=== PATIENT | female | born 1995 | race Caucasian/White ===

== ENCOUNTER 2017-11-14 10:14 | Observation (INO) | payer OTHER ==
[2017-11-14] VITALS (9 sets, daily range): BP systolic 103–120; BP diastolic 56–71; PULSE 70–102; TEMP 97.5–97.9
[~2017-11-14] VITALS: Ht 154.9 cm; Wt 57.7 kg
[2017-11-14 10:41] LABS: COLLECTION METHOD CLEAN CATCH
[2017-11-14 10:45] LABS: BASO # 0.1 (0.0-0.2); BASO % 0.7 % (0.0-2.0); EOS # 0.1 (0.0-0.7); EOS % 1.2 % (0-4.0); GRAN # 4.6 (1.4-6.5); GRAN % 68.6 % (42.2-75.2); HEMATOCRIT 37.7 % (37.0-47.0); HEMOGLOBIN 12.9 g/dl (12.5-16.0); LYMPH # 1.5 (1.2-3.4); LYMPH % 21.7 % (20.0-51.0); MEAN CELL VOLUME 84 fl (80.0-100.0); MEAN CORPUSCULAR HEMOGLOBIN 29 pg (27.0-31.0); MEAN CORPUSCULAR HGB CONC 34 g/dl (33.0-37.0); MEAN PLATELET VOLUME 9.4 fl (7.4-10.4); MONO # 0.5 (0.1-0.6); MONO % 7.7 % (1.7-9.3); PLATELET COUNT 299 K/mm3 (130-400)
[2017-11-14 10:55] LABS: ALBUMIN 4.1 gm/dL (3.5-5.0); BILIRUBIN,TOTAL 0.4 mg/dL (0.0-1.0); CALCIUM 9.1 mg/dL (8.4-10.2); CREATININE, serum 0.7 mg/dL (0.52-1.25); POTASSIUM 3.9 mmol/L (3.4-5.0); TOTAL PROTEIN 7.4 gm/dL (6.4-8.2)
[2017-11-14 10:55] LABS: MUCOUS Present /lpf; PH 7 (5-8); URINE APPEARANCE Hazy; URINE BACTERIA Rare /hpf; URINE BILIRUBIN Negative (NEGATIVE); URINE BLOOD 1+ (NEGATIVE); URINE COLOR Yellow; URINE GLUCOSE Negative (NEGATIVE); URINE KETONE Negative (NEGATIVE); URINE LEUKOCYTE ESTERASE Trace (NEGATIVE); URINE NITRATE Negative (NEGATIVE); URINE PROTEIN(semi-quant) 1+ (NEGATIVE); URINE UROBILINOGEN Negative (NEGATIVE)
[2017-11-14] MEDS ORDERED: FLAGYL500 MG PO ×2 (12:22→14:52)
[2017-11-14] MEDS ORDERED: IBU800 M1 PO (14:52)
[2017-11-14] MEDS ORDERED: PERCOCET 325 MG1 TA2 PO (14:52)
== END 2017-11-14 19:15 | disposition home or self-care (01) ==
LOC: COL.ER 10:14 → OB 13:18 → COL.ER 13:31 → OB 19:15
PROVIDERS: Physician Assistant
DX: N83.512 Torsion of left ovary and ovarian pedicle (principal); N83.6 Hematosalpinx; J45.909 Unspecified asthma, uncomplicated
CPT/HCPCS: G0378; J0690; J1100; J1170; J1885; J2175; J2405; J2704; J2710; J2765; J3010; J7030